=== PATIENT | male | born 1985 | race Caucasian/White ===

== ENCOUNTER → 2016-10-09 | Outpatient (CLI) | payer BC ==
[2016-10-09 15:56] LABS: CHLORIDE,CL 107 mmol/L (98-110); SODIUM,NA 142 mmol/L (136-146)
--- NOTE | 2016-10-09 16:04 | CR ---
EXAMINATION: Two-view chest (PA and Lateral views). HISTORY: Preprocedural examination. FINDINGS: The trachea is midline. The cardiomediastinal silhouette is within normal limits. No pulmonary infil trates, effusions or pneumothorax. Osseous structures appear unremarkable. IMPRESSION: No acute cardiopulmonary process.
[2016-10-09 16:50] LABS: CHLORIDE,CL 107 mmol/L (98-110); SODIUM,NA 142 mmol/L (136-146)
== END ==
LOC: MW.CHFP 08:57
PROVIDERS: ATTEND Physician Assistant
DX: Z01.818 Encounter for other preprocedural examination (principal)
CPT/HCPCS: 36415; 71020; 71020-26; 80048; 80053; 81001; 84439; 84443; 85025; 85610; 85730; 93005

== ENCOUNTER 2024-09-05 16:27 | Emergency (ER) | payer BC ==
[2024-09-05 17:06] LABS: BASOPHILS ABSOLUTE AUTO 0.04 K/uL (0.00-0.20); BASOPHILS PERCENT AUTO 0.4 % (0.0-1.0); EOSINOPHILS ABSOLUTE AUTO 0.11 K/uL (0.00-0.45); EOSINOPHILS PERCENT AUTO 1.1 % (0.0-6.0); HEMATOCRIT 43.2 % (42.0-52.0); HEMOGLOBIN 14.7 g/dL (14.0-18.0); IMMATURE GRAN ABSOLUTE AUTO 0.02 K/uL (0.00-0.05); IMMATURE GRAN PERCENT AUTO 0.2 % (0.0-0.4); LYMPHOCYTES ABSOLUTE AUTO 2.01 K/uL (1.00-4.80); LYMPHOCYTES PERCENT AUTO 20.1 % (24.0-44.0); MEAN CORPUSCULAR HEMOGLOBIN 31.1 pg (28.0-32.0); MEAN CORPUSCULAR VOLUME 91.5 fL (83.0-99.0); MEAN PLATELET VOLUME 9.6 fL (9.4-12.4); MONOCYTES ABSOLUTE AUTO 0.77 K/uL (0.00-0.80); MONOCYTES PERCENT AUTO 7.7 % (0.0-8.0); NEUTROPHILS ABSOLUTE AUTO 7.03 K/uL (1.80-7.70); NEUTROPHILS PERCENT AUTO 70.5 % (41.0-71.0); PLATELET COUNT,PLT 256 K/uL (150-400); RED BLOOD CELL COUNT 4.72 M/uL (4.52-5.90); WHITE BLOOD CELL COUNT,WBC 9.98 K/uL (3.9-11.3)
[2024-09-05 17:23] LABS: A/G RATIO 1.1 (0.9-1.6); ALBUMIN 3.7 g/dL (3.4-5.0); BILIRUBIN TOTAL 1.6 mg/dL (0.2-1.0); C-REACTIVE PROTEIN 0.62 mg/dL (<0.3); CALCIUM 8.8 mg/dL (8.5-10.1); CARBON DIOXIDE,CO2 25.1 mmol/L (21.0-32.0); CREATININE 0.9 mg/dL (0.8-1.3); EST CRCL DRUG DOSING (CG) 130.4 mL/min; POTASSIUM,K 3.6 mmol/L (3.5-5.1); PROTEIN TOTAL,TP 7.1 g/dL (6.4-8.2)
[2024-09-05] MEDS: Dexamethasone 4 MG Tab PO ONE (18:19)
[2024-09-05] MEDS: Acetaminophen 500 MG Tab PO ONE (18:19)
[2024-09-05] MEDS: Ketorolac 30 MG/ML SDV IM ONE (18:19)
== END 2024-09-05 18:36 | disposition home or self-care (01) ==
LOC: MW.ED 16:27
DX: M25.562 Pain in left knee (principal); D68.51 Activated protein C resistance; Z87.39 Personal history of other diseases of the musculoskeletal system and connective tissue; Z79.899 Other long term (current) drug therapy
CPT/HCPCS: 36415; 73562; 80053; 85025; 85652; 86140; 93971; 96372; 99284; A9270; J1885; J8540